=== PATIENT | female | born 1950 | race Caucasian/White ===

== ENCOUNTER 2017-08-22 09:28 | Observation (INO) ==
[2017-08-22] MEDS ORDERED: Aspirin 81 MG TAB.CHEW PO ONE (09:34)
--- NOTE | 2017-08-22 09:47 | Emergency Department Note ---
Disposition Clinical Impression: Atypical chest pain Disposition: Admitted As Inpatient Condition: Fair Time of Disposition: 12:26 Chest Pain HPI - General Chief Complaint: ED Chest Pain Stated Complaint: chest pain Time Seen by Provider: 08/22/17 09:31 Source: patient, EMS Limitations: no limitations Vital Signs Reviewed: Yes Nursing Notes Reviewed: Yes - History of Present Illness HPI Narrative: 66-year-old female presents to the ED complaining of left-sided chest pain she states that it started out approximately 8:00 this morning when she woke up lasted for about 20 minutes thousand she called the squad and it ended right before the squad arrived. She presented here with EMS. She said she had no nausea or vomiting the chest pain is only located in the chest was nonradiating to the arms of the jaw. Patient states she has never felt this pain before. She says that she was diagnosed with heart disease via by cardiology but has never had any stents or bypass surgery done. Patient is on a long car/plane ride she has not had any unilateral leg swelling or leg pain, never had any blood clots she is not on any blood thinners, she does not any hemoptysis she is not short of breath at this time. Patient otherwise has no complaints including headache, blurry vision, pain with urination, change in bowel movements, abdominal pain, pain attending and on the arms or legs or any current numbness she says no fevers, nausea/vomiting. Severity scale (1-10): 0 - Related Data Home Medications Medication Instructions Recorded Confirmed Acetaminophen [Tylenol] 325 mg PO Q6HR PRN 07/21/15 08/22/17 Aspirin Enteric Coated [Aspirin] 81 mg PO DAILY 07/21/15 08/22/17 Omeprazole [Prilosec] 40 mg PO BID 07/21/15 08/22/17 TraZODone 50 mg PO HS 07/21/15 08/22/17 Lisinopril [Zestril] 20 mg PO BID 08/22/17 08/22/17 Simvastatin [Zocor] 40 mg PO Q48H 08/22/17 08/22/17 amLODIPine [Norvasc] 5 mg PO DAILY 08/22/17 08/22/17 Allergies Allergy/AdvReac Type Severity Reaction Status Date / Time No Known Allergies Allergy Verified 08/22/17 10:44 Review of Systems: 10 point review of systems done and negative unless otherwise stated in history of present illness. All systems ED: reviewed and negative except as stated. Review of Systems: As Per HPI Chest Pain PMH - Past Medical History Medical history: Reports: hypertension, other CERTIFIED NURSE AIDE history: Reports: no CERTIFIED NURSE AIDE history - Social History Smoking Status: Never smoker Alcohol use: Reports: none Physical Exam - General Limitations: no limitations General appearance: alert, in no apparent distress - Head Head exam: atraumatic, normocephalic, normal inspection - Eye Eye exam: Present: normal appearance, PERRL, EOMI - ENT ENT exam: normal exam, normal oropharynx, mucous membranes moist - Neck Neck exam: Present: normal inspection, full ROM, trachea midline - Chest Chest inspection: Present: normal inspection, symmetric chest wall rise - Respiratory Respiratory exam: Present: normal lung sounds bilaterally - Cardiovascular Cardiovascular exam: Present: regular rate, normal rhythm, normal heart sounds - Abdominal Exam Abdominal exam: Present: soft, Non-Tender. Absent: tenderness, distention, guarding, rebound, rigidity - Extremities Exam Extremities exam: Present: normal inspection, full ROM. Absent: tenderness, pedal edema - Expanded Lower Extremity Exam Hip/Pelvis exam: Present: normal inspection, full ROM Upper leg exam: Present: normal inspection, full ROM Knee exam: Present: normal inspection, full ROM Lower leg exam: Present: normal inspection, full ROM Ankle exam: Present: normal inspection, full ROM Foot/toe exam: Present: normal inspection, full ROM Neurovascular/Tendon exam: Present: normal capillary refill. Absent: pulse deficit, motor deficit, sensory deficit, tendon deficit - Back Exam Back exam: Present: normal inspection, full ROM. Absent: tenderness, CVA tenderness (R), CVA tenderness (L) - Neurological Exam Neurological exam: Present: alert, oriented X3 - Skin Skin exam: Present: warm, dry, intact, normal color Course Course Narrative: 66-year-old female presents to the ED complaining of chest pain. Chest pain is since subsided. She took 81 mg of aspirin this morning which is her normal dose. Patient has a history of hypertension and diagnosed cardiac disease without any stents or bypass surgery. We will do normal chest pain workup including CBC, BMP, troponin, chest x-ray, EKG we will give her the rest her dose of aspirin to make it 325 mg of aspirin. We will not give her nitroglycerin at this time she is currently having chest pain. Patient otherwise okay with this plan. Most likely disposition will be admission for chest pain rule out. Vital Signs Temperature 97.8 F 08/22/17 09:29 Pulse Rate 67 08/22/17 09:29 Respiratory Rate 18 08/22/17 09:29 Blood Pressure 193/104 08/22/17 09:29 O2 Sat by Pulse Oximetry 96 08/22/17 09:29 Temperature 97.8 F 08/22/17 09:29 Pulse Rate 56 08/22/17 12:36 Respiratory Rate 16 08/22/17 12:36 Blood Pressure 148/66 08/22/17 12:36 O2 Sat by Pulse Oximetry 96 08/22/17 12:36 Oxygen Delivery Oxygen Delivery Room Air Chest Pain - MDM Narrative Medical decision making narrative: 66-year-old female presented to the ED with chest pain she says it started all of a sudden this morningwhen she called squad come pick her up. She states that after they arrived the chest pain did go away. She is worried because she does have a history of coronary artery disease approximately 2 years ago she did have a heart catheter which showed mild coronary artery disease. There were she has never had stents placed or had any bypass surgery. She regularly sees the electronics test engineer that she set to see them next week. Patient states the chest pain is gone away now. She did take 81 mg of aspirin prior to arrival. So we gave her 243 to have her equal a total dose of aspirin needed. She did have a negative troponin and all other labs were negative. She is not pain so I did not give her nitroglycerin. Due to patient's history of coronary artery disease as well as the chest pain. With like that admission for further evaluation is needed at this time. Spoke with the patient she is okay with this plan. Spoke with the hospitalist Dr. Mckenna who agreed to admit the patient. Patient is now admitted to their service in stable condition. Chest X-Ray 08/22/17 09:34 IMPRESSION: No acute cardiopulmonary process. D/ / Joan Farmer MD / Joan Farmer MD Interpreting Provider: Joan Farmer MD - Medical Records Medical records reviewed: Yes I reviewed the patient's medical records. - Lab Data Lab results reviewed: Yes I reviewed the patient's lab results. Result diagrams: 08/22/17 09:52 08/22/17 09:52 Lab Results 08/22/17 08/22/17 08/22/17 Range/Units 09:52 09:52 09:52 WBC 5.1 (4.3-11.1) K/mcL RBC 4.03 (3.82-4.97) M/mcL Hgb 12.7 (11.5-15.4) g/dL Hct 37.7 (35.3-44.9) % MCV 93.5 (83.0-100.0) fL MCH 31.5 (28.0-33.3) pg MCHC 33.7 (31.6-35.5) g/dL RDW 12.8 (11.5-14.5) % Plt Count 183 (140-400) K/mcL MPV 10.9 (9.4-12.4) fL Immature Gran % 0.2 (0-4) % Seg Neutrophils % 75.4 % Lymphocytes % 16.0 % Monocytes % 6.8 % Eosinophils % 1.2 % Basophils % 0.4 % Neutrophils # 3.9 (1.6-8.9) K/mcL Lymphocytes # 0.8 (0.6-4.6) K/mcL Monocytes # 0.4 (0.0-1.3) K/mcL Eosinophils # 0.1 (0.0-0.6) K/mcL Basophils # 0.0 (0.0-0.2) K/mcL Immature Plt Fraction 6.0 (1.1-6.1) % PT 10.8 (9.4-12.1) Seconds INR 1.0 APTT 33.8 (26.0-36.0) Seconds Sodium 138 (136-145) mEq/L Potassium 4.6 H (3.5-4.5) mEq/L Chloride 110 H (98-109) mEq/L Carbon Dioxide 19 (19-29) mEq/L BUN 20 (7-20) mg/dL Creatinine 0.98 (0.57-1.11) mg/dL Est GFR ( Amer) > 60 (> 60) Est GFR (Non-Af Amer) 56 L (> 60) BUN/Creatinine Ratio 20 (6-26) Glucose 123 H (70-99) mg/dL Calculated Osmolality 290 (280-300) Calcium 9.6 (8.6-10.8) mg/dL Troponin I (0-0.03) ng/mL 08/22/17 Range/Units 09:52 WBC (4.3-11.1) K/mcL RBC (3.82-4.97) M/mcL Hgb (11.5-15.4) g/dL Hct (35.3-44.9) % MCV (83.0-100.0) fL MCH (28.0-33.3) pg MCHC (31.6-35.5) g/dL RDW (11.5-14.5) % Plt Count (140-400) K/mcL MPV (9.4-12.4) fL Immature Gran % (0-4) % Seg Neutrophils % % Lymphocytes % % Monocytes % % Eosinophils % % Basophils % % Neutrophils # (1.6-8.9) K/mcL Lymphocytes # (0.6-4.6) K/mcL Monocytes # (0.0-1.3) K/mcL Eosinophils # (0.0-0.6) K/mcL Basophils # (0.0-0.2) K/mcL Immature Plt Fraction (1.1-6.1) % PT (9.4-12.1) Seconds INR APTT (26.0-36.0) Seconds Sodium (136-145) mEq/L Potassium (3.5-4.5) mEq/L Chloride (98-109) mEq/L Carbon Dioxide (19-29) mEq/L BUN (7-20) mg/dL Creatinine (0.57-1.11) mg/dL Est GFR ( Amer) (> 60) Est GFR (Non-Af Amer) (> 60) BUN/Creatinine Ratio (6-26) Glucose (70-99) mg/dL Calculated Osmolality (280-300) Calcium (8.6-10.8) mg/dL Troponin I 0.01 (0-0.03) ng/mL - Radiology Data Radiology results reviewed: Yes I reviewed the patient's radiology results. - EKG Data EKG attestation: Yes I reviewed and interpreted this EKG. EKG results narrative: EKG done at 0939 reviewed by myself and attending shows sinus bradycardia at a rate of 56, NE interval 151, QRS 85, QTc 385 with a normal axis. No acute ST changes, no acute T-wave abnormalities, no signs of any heart strain or hypertrophy, heart block, WPW/Brugada syndrome. This is unchanged when compared with an old EKG done 01/29/09. Heart Score - Score History: Slightly Suspicious EKG: Non Specific repolarisation Disturbance Age: Greater than 65 Risk Factors: 1-2 risk factors Troponin: Less than normal limit HEART Score Total: 4 Attestation Statement - Attestation Attestation: I examined this patient and my medical decision-making was reviewed with the Resident Physician. I agree with the documented findings, disposition and treatment plan as described except to the extent set forth below. Patient presents to the ED with resolved chest pain. Patient states express chest pain home. The last about 30 minutes and resolved prior to her arrival here. She states she had a heart catheterization done a couple of years ago which showed coronary disease. No interventions were performed at that time. Patient is in no distress on examination. Lungs clear heart regular. Plan. Cardiac workup is unremarkable. Troponin is negative. No EKG changes. She is admitted secondary to risk factors.
[2017-08-22 10:00] LABS: Basophils % 0.4 %; Eosinophils # 0.1 K/mcL (0.0-0.6); Eosinophils % 1.2 %; Hematocrit 37.7 % (35.3-44.9); Hemoglobin 12.7 g/dL (11.5-15.4); Immature Granulocytes % 0.2 % (0-4); Lymphocytes # 0.8 K/mcL (0.6-4.6); Mean Corpuscular HGB Conc 33.7 g/dL (31.6-35.5); Mean Corpuscular Hemoglobin 31.5 pg (28.0-33.3); Mean Corpuscular Volume 93.5 fL (83.0-100.0); Mean Platelet Volume 10.9 fL (9.4-12.4); Monocytes # 0.4 K/mcL (0.0-1.3); Monocytes % 6.8 %; Neutrophils # 3.9 K/mcL (1.6-8.9); Platelet Count 183 K/mcL (140-400); Red Blood Count 4.03 M/mcL (3.82-4.97); Red Cell Distribution Width 12.8 % (11.5-14.5); Segmented Neutrophils % 75.4 %
[2017-08-22 10:07] LABS: Prothrombin Time 10.8 Seconds (9.4-12.1)
[2017-08-22 10:09] LABS: Activated Partial Thrombo Time 33.8 Seconds (26.0-36.0)
[2017-08-22 10:16] LABS: BUN/Creatinine Ratio 20 (6-26); Blood Urea Nitrogen 20 mg/dL (7-20); Calcium 9.6 mg/dL (8.6-10.8); Carbon Dioxide 19 mEq/L (19-29); Chloride 110 mEq/L (98-109); Glucose 123 mg/dL (70-99); Osmolality,Calculated 290 (280-300); Potassium 4.6 mEq/L (3.5-4.5); Sodium 138 mEq/L (136-145); eGFR For African Americans > 60 (> 60); eGFR For Non-African Americans 56 (> 60)
--- NOTE | 2017-08-22 10:53 | Electrocardiograph Report ---
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
--- NOTE | 2017-08-22 13:17 | Internal Med History&Physical ---
Date of Encounter: 08/22/17 Time of Encounter: 13:17 Assessment and Plan (1) Atypical chest pain Current visit: Yes Status: Acute 66/female Likely atypical chest pain. Admitted for chest pain to rule out ACS protocol. At this point she is not on beta oleg because her heart rate was less than 55 bpm. Plan: -Admitted as observation. -Aspirin/Lipitor/lisinopril/amlodipine. -Echocardiogram. -Cycle troponin. -Labs tomorrow morning. -If 3 troponins negative/echocardiogram normal: Please consider stress test. Of note: I examined this patient in the emergency room #33. I explained at length the plan with the patient. She verbalized understanding. (2) Iron deficiency anemia Current visit: No Status: Chronic Patient previously had a chronic iron deficiency anemia. Patient's hemoglobin is now stable. Patient might be hemoconcentrated. Qualifiers: Iron deficiency anemia type: unspecified iron deficiency Qualified Code(s) : D50.9 - Iron deficiency anemia, unspecified (3) Chronic kidney disease Current visit: No Status: Acute Patient's creatinine is within normal limits. Qualifiers: Chronic kidney disease stage: unspecified stage Qualified Code(s): N18.9 - Chronic kidney disease, unspecified (4) DVT prophylaxis Current visit: Yes Status: Acute SCD Medical decision making: This patient has a moderate to severe risk of worsening in spite of being on appropriate medication due to the underlying complex medical conditions. Internal Medicine - H&P: HPI Chief complaint: chest pain Admitted From: Emergency Dept Plans for Post Hospital Care: Home History of present illness: PCP: Dr Salas Brief PMH: Hypertension, hyperlipidemia, mild coronary artery disease, previous cardiac catheterization 2 years back HPI: Patient started complaining of chest pain this morning. The chest pain was left precordial region, sharp in nature, radiating to the left arm along with left shoulder, lasted for more than one hour and that is the reason she called squad for further evaluation. Patient tells me that she was praying for 1 hour to get this pain go away that her pain was consistent and she felt that she is going to have a heart attack if she does not take care of of this on a priority basis. Patient denies shortness of breath, nausea, vomiting, abdominal pain, dizziness or diarrhea. Work up in ER: patient was evaluated in the emergency room. Basic labs were drawn. EKG was done. Her heart score was 3.: Reason for hospitalization:Chest pain to rule out ACS. Family history: Noncontributory Past Med Surg Social Fam HX - Past Medical History Medical history: hypertension, other - Social History Smoking Status: Never smoker Smokeless Tobacco Status: No Alcohol use: none Internal Medicine - H&P: Meds Acetaminophen [Tylenol] 325 mg PO Q6HR PRN 07/21/15 [History] Aspirin Enteric Coated [Aspirin] 81 mg PO DAILY 07/21/15 [History] Omeprazole [Prilosec] 40 mg PO BID 07/21/15 [History] TraZODone 50 mg PO HS 07/21/15 [History] Lisinopril [Zestril] 20 mg PO BID 08/22/17 [History] Simvastatin [Zocor] 40 mg PO Q48H 08/22/17 [History] amLODIPine [Norvasc] 5 mg PO DAILY 08/22/17 [History] 3 Allergy/AdvReac Type Severity Reaction Status Date / Time No Known Allergies Allergy Verified 08/22/17 10:44 All Systems PM: A 10-system review of systems was performed and is negative for pertinent findings except as documented above in the HPI. - Constitutional Constitutional: no chills, no fever(s), no night sweats - EENT Eyes: no change in vision, no discharge, no pain, no photophobia Ears: no ear discharge, no ear pain, no tinnitus Nose, mouth and throat: no dysphagia, no nasal discharge, no neck pain, no sore throat - Cardiovascular Cardiovascular ROS IM: as per HPI, chest pain, diaphoresis, lightheadedness, palpitations, no dyspnea, no syncope - Respiratory Respiratory: no cough, no dyspnea, no wheezing, no excessive phlegm production - Gastrointestinal Gastrointestinal: no abdominal pain, no diarrhea, no hematemesis, no hematochezia, no melena, no nausea, no vomiting - Genitourinary Genitourinary: no change in urinary stream, no dysuria, no flank pain, no hematuria - Musculoskeletal Musculoskeletal ROS IM: no numbness, no tingling - Integumentary Integumentary IM: no rash, no unusual bruising - Neurological Neurological ROS: no confusion, no convulsions, no focal weakness, no numbness, no tingling, no tremor(s) - Hematologic/Lymphatic Hematologic/Lymphatic: no easy bruising - Constitutional Vitals: Temp Pulse Resp BP Pulse Ox 97.8 F 56 16 148/66 96 08/22/17 09:29 08/22/17 12:36 08/22/17 12:36 08/22/17 12:36 08/22/17 12:36 General appearance: Present: A&O X 3, pleasant, no acute distress, answers questions appropriately - Head Head exam: Present: atraumatic, normocephalic - Eye Eye exam: Present: PERRL, conjuntiva pink, sclera anicteric Pupils: Present: PERRL - Neck Neck exam general surgery: Present: supple, trachea midline. Absent: lymphadenopathy - Respiratory Respiratory exam: Present: CTAB. Absent: accessory muscle use, rales, rhonchi, wheezes - Cardiovascular Cardiovascular exam: Present: RRR, +S1, +S2. Absent: diastolic murmur, gallop, rubs, systolic murmur - GI/Abdominal GI/Abdominal exam: Present: normal bowel sounds, soft, no peritoneal signs. Absent: distended, tenderness - Extremities Exam Extremities exam: Present: warm, radial pulses palpable and symmetrical. Absent : calf tenderness, cyanotic, pedal edema - Neurological Exam Neurological exam: Present: CN II-XII intact, oriented X3, no focal deficits. Absent: pronater drift, facial droop, speech deficit - Skin Skin exam: Present: dry, intact Internal Med - H&P Results - Labs CBC & Chem 7: 08/22/17 09:52 08/22/17 09:52
[2017-08-22] MEDS ORDERED: Naloxone 0.4 MG/ML INJ IVP PRN (13:39)
[2017-08-22] MEDS ORDERED: Nitroglycerin 0.4 MG TAB.SUBL SL PRN (13:47)
[2017-08-22] MEDS: Acetaminophen 325 MG TABLET PO PRN (15:17)
[2017-08-22] MEDS: traZODone 50 MG TABLET PO SCH (21:01)
[2017-08-22] MEDS: Lisinopril 20 MG TABLET PO SCH (21:01)
[2017-08-23] MEDS: Acetaminophen 325 MG TABLET PO PRN ×2 (00:36→14:50)
[2017-08-23 01:38] LABS: Basophils % 0.4 %; Eosinophils # 0.1 K/mcL (0.0-0.6); Eosinophils % 1.5 %; Hematocrit 33.9 % (35.3-44.9); Hemoglobin 11.4 g/dL (11.5-15.4); Immature Granulocytes % 0.2 % (0-4); Lymphocytes % 21.4 %; Mean Corpuscular HGB Conc 33.6 g/dL (31.6-35.5); Mean Corpuscular Hemoglobin 31.5 pg (28.0-33.3); Mean Corpuscular Volume 93.6 fL (83.0-100.0); Mean Platelet Volume 10.7 fL (9.4-12.4); Monocytes # 0.3 K/mcL (0.0-1.3); Monocytes % 7.1 %; Neutrophils # 3.1 K/mcL (1.6-8.9); Platelet Count 154 K/mcL (140-400); Red Blood Count 3.62 M/mcL (3.82-4.97); Red Cell Distribution Width 12.8 % (11.5-14.5); Segmented Neutrophils % 69.4 %
[2017-08-23 01:44] LABS: INR 1.1; Prothrombin Time 11.8 Seconds (9.4-12.1)
[2017-08-23 01:47] LABS: Activated Partial Thrombo Time 31.9 Seconds (26.0-36.0)
[2017-08-23 01:53] LABS: Alanine Aminotransferase 15 Units/L (0-55); Albumin 3.1 g/dL (3.5-5.0); Albumin/Globulin Ratio 1.1 (1.1-2.2); Alkaline Phosphatase 83 Units/L (38-126); Aspartate Amino Transferase 22 Units/L (5-34); BUN/Creatinine Ratio 25 (6-26); Bilirubin,Total 0.5 mg/dL (0.2-1.2); Blood Urea Nitrogen 25 mg/dL (7-20); Calcium 9.1 mg/dL (8.6-10.8); Carbon Dioxide 24 mEq/L (19-29); Chloride 109 mEq/L (98-109); Chol/HDL Ratio 3.3 (0-4.9); Cholesterol 150 mg/dL (< 200); Globulin 2.7 g/dL (2.4-3.5); Glucose 109 mg/dL (70-99); HDL Cholesterol 46 mg/dL (40-59); LDL Cholesterol,Calculated 84 mg/dL (0-99); Magnesium 2.1 mg/dL (1.6-2.6); Osmolality,Calculated 295 (280-300); Phosphorous 3.9 mg/dL (2.3-4.7); Sodium 140 mEq/L (136-145); Total Protein 5.8 g/dL (6.0-8.3); Triglycerides 102 mg/dL (< 150); eGFR For African Americans > 60 (> 60); eGFR For Non-African Americans 55 (> 60)
[2017-08-23] MEDS: Lisinopril 20 MG TABLET PO SCH ×2 (09:33→20:51)
[2017-08-23] MEDS: Aspirin Enteric Coated 81 MG Tablet PO SCH (09:33)
[2017-08-23] MEDS: amLODIPine 5 MG TABLET PO SCH (09:33)
[2017-08-23] MEDS: Metoprolol XL (24 HR) Succ 50 MG TAB.ER.24H PO SCH (14:47)
[2017-08-23] MEDS: traZODone 50 MG TABLET PO SCH (20:51)
[2017-08-24] MEDS ORDERED: Regadenoson 0.4 MG/5 ML SYRINGE IVP ONE (06:26)
[2017-08-24] MEDS: Aspirin Enteric Coated 81 MG Tablet PO SCH (10:20)
[2017-08-24] MEDS: Metoprolol XL (24 HR) Succ 50 MG TAB.ER.24H PO SCH (10:21)
[2017-08-24] MEDS: amLODIPine 5 MG TABLET PO SCH (10:21)
[2017-08-24] MEDS: Acetaminophen 325 MG TABLET PO PRN (10:21)
[2017-08-24] MEDS: Lisinopril 20 MG TABLET PO SCH (10:21)
[2017-08-24 11:00] VITALS: BP 121/68
--- NOTE | 2017-08-24 13:20 | Internal Med Progress Note ---
Date of Encounter: 08/23/17 (This is a late entry, pt was seen yesterday, documented today. Overlooked incomplete note. ) Time of Encounter: 09:20 - Assessment and plan (1) Atypical chest pain Current Visit: Yes Status: Acute Assessment and plan: Patient reported chest pain the morning of admission. She has been recently treated for bronchitis at urgent care with a new medication. She reports the chest pain was left chest pain, sharp, radiated to the left arm and shoulder, lasted approximately 90 minutes. She called EMS to bring her to the hospital in the pain was resolved prior to reaching the hospital after being treated in EMS nitroglycerin and aspirin. She denied shortness of breath, nausea, dizziness or near syncope, no diaphoresis. Patient was to have stress test morning however it was not done due to patient eating. EKG was normal sinus without any ST elevation or changes. Troponins were negative 3. The pain is not reproducible with palpation, deep inspiration, or movement. Echocardiogram showed LVEF of 55-60% with no significant valvular dysfunction and normal LV diastolic function. Chest x-ray is negative Chest X-Ray 08/22/17 09:34 IMPRESSION: No acute cardiopulmonary process. D/ / Joan Farmer MD / Joan Farmer MD Interpreting Provider: Joan Farmer MD Echocardiogram 08/22/17 13:44 Impressions: No evidence of pulmonary hypertension. Normal left ventricular diastolic function. LVEF 55-60%. No significant valvular dysfunction. Findings: Study Quality * Technically adequate exam. Right Ventricle * Normal right ventricular structure and function. Left Atrium * Normal left atrial size. Right Atrium * Normal right atrial size. Interatrial Septum * No evidence of PFO by color Doppler. Aorta * Normally sized aortic root. ECG Findings * Normal sinus rhythm. Pericardium * There is a trivial pericardial effusion present. Tricuspid Valve * Trace tricuspid regurgitation. * No tricuspid stenosis. * Estimated RVSP is 29 mmHg. * No evidence of pulmonary hypertension. Left Ventricle * Normal left ventricular diastolic function. * LVEF 55-60%. Pulmonic Valve * No pulmonic stenosis. * No pulmonic regurgitation. Mitral Valve * Normal mitral valve structure. * No mitral stenosis. * Mild mitral regurgitation. Aortic Valve * Normal aortic valve structure. * No aortic stenosis. * Mild aortic regurgitation. Continue telemetry Stress test pending Continue to monitor labs and vital signs Aspirin or nitroglycerin for chest pain (2) Iron deficiency anemia Current Visit: No Status: Chronic Assessment and plan: Patient with prior history of iron deficiency anemia. She is currently not taking any supplementation and her hemoglobin is only mildly decreased at 11.4. Patient follows with primary care for evaluation. Qualifiers: Iron deficiency anemia type: unspecified iron deficiency Qualified Code(s) : D50.9 - Iron deficiency anemia, unspecified (3) Chronic kidney disease Current Visit: Yes Status: Chronic Assessment and plan: Renal function is within normal limits. Serum creatinine is 1.0 GFR is 55. This is improved over her normal baseline. Continue to avoid nephrotoxins and NSAIDs. Follow-up with primary care. Qualifiers: Chronic kidney disease stage: unspecified stage Qualified Code(s): N18.9 - Chronic kidney disease, unspecified (4) DVT prophylaxis Current Visit: Yes Status: Acute Assessment and plan: Patient has been ambulatory. Encourage ambulation. - Time Spent With Patient less than 15 minutes - Subjective Interval history: Patient was seen and assessed at 9:20 AM yesterday. This is a late entry as previously documented. She reports that she has been recently treated for bronchitis and was seen in urgent care sometime in July. She denies being a smoker. She denies any chest pain at the time of examination and she has had no chest pain since prior to arriving at the emergency department. - Constitutional Vitals: Temp Pulse Resp BP Pulse Ox 97.6 F 65 16 121/68 96 08/24/17 10:59 08/24/17 10:59 08/24/17 10:59 08/24/17 10:59 08/24/17 10:59 General appearance: Present: cooperative, A&O X 3, pleasant, no acute distress, answers questions appropriately - Head Head exam: Present: atraumatic, normal inspection, normocephalic - Eye Eye exam: Present: normal appearance, conjuntiva pink, sclera anicteric - Neck Neck exam general surgery: Present: supple, trachea midline. Absent: lymphadenopathy, tenderness - Respiratory Respiratory exam: Present: CTAB, wheezes. Absent: accessory muscle use, decreased breath sounds, rales, rhonchi Additional comments: Faint wheezing heard in bilateral bases. - Cardiovascular Cardiovascular exam: Present: RRR, +S1, +S2. Absent: diastolic murmur, gallop, irregular rhythm, rubs, systolic murmur - GI/Abdominal GI/Abdominal exam: Present: normal bowel sounds, soft. Absent: diminished bowel sounds, distended, hepatomegaly, tenderness - Extremities Exam Extremities exam: Present: normal inspection, warm, radial pulses palpable and symmetrical. Absent: calf tenderness, cyanotic, pedal edema, tenderness - Neurological Exam Neurological exam: Present: CN II-XII intact, oriented X3, no focal deficits. Absent: pronater drift, facial droop, speech deficit - Skin Skin exam: Present: dry, intact Internal Medicine: Result - Labs CBC & Chem 7: 08/23/17 01:26 08/23/17 01:26 - ABG Interpretation ABG results: PT/INR, D-dimer PT 11.8 Seconds (9.4-12.1) 08/23/17 01:26 Consult Discharge Plan - Plan Referrals: James Durbin DO [Primary Care Provider] -
--- NOTE | 2017-08-24 13:30 | Discharge Summary ---
Date of Encounter: 08/24/17 Time of Encounter: 13:15 - Discharge Diagnosis (1) Atypical chest pain Priority: Primary Status: Acute Comments: Patient reported chest pain the morning of admission. She has been recently treated for bronchitis at urgent care with a new medication. She reports the chest pain was left chest pain, sharp, radiated to the left arm and shoulder, lasted approximately 90 minutes. She called EMS to bring her to the hospital in the pain was resolved prior to reaching the hospital after being treated in EMS nitroglycerin and aspirin. She denied shortness of breath, nausea, dizziness or near syncope, no diaphoresis. Patient was to have stress test morning however it was not done due to patient eating. EKG was normal sinus without any ST elevation or changes. Troponins were negative 3. The pain is not reproducible with palpation, deep inspiration, or movement. Echocardiogram showed LVEF of 55-60% with no significant valvular dysfunction and normal LV diastolic function. Chest x-ray is negative. Stress test was negative for ischemia or infarct with a gated EF of greater than 70%. Unclear etiology of chest pain other than pleuritic chest pain or pain due to bronchitis, lungs are clear throughout both a&p lung lucero. Pt is a non-smoker and denies change in routine or level of activity. I have encouraged pt to return if symptoms return and to follow up with her PCP in the next 7-10 days. Continue aspirin and statin. Chest X-Ray 08/22/17 09:34 IMPRESSION: No acute cardiopulmonary process. D/ / Joan Farmer MD / Joan Farmer MD Interpreting Provider: Joan Farmer MD Echocardiogram 08/22/17 13:44 Impressions: No evidence of pulmonary hypertension. Normal left ventricular diastolic function. LVEF 55-60%. No significant valvular dysfunction. Findings: Study Quality * Technically adequate exam. Right Ventricle * Normal right ventricular structure and function. Left Atrium * Normal left atrial size. Right Atrium * Normal right atrial size. Interatrial Septum * No evidence of PFO by color Doppler. Aorta * Normally sized aortic root. ECG Findings * Normal sinus rhythm. Pericardium * There is a trivial pericardial effusion present. Tricuspid Valve * Trace tricuspid regurgitation. * No tricuspid stenosis. * Estimated RVSP is 29 mmHg. * No evidence of pulmonary hypertension. Left Ventricle * Normal left ventricular diastolic function. * LVEF 55-60%. Pulmonic Valve * No pulmonic stenosis. * No pulmonic regurgitation. Mitral Valve * Normal mitral valve structure. * No mitral stenosis. * Mild mitral regurgitation. Aortic Valve * Normal aortic valve structure. * No aortic stenosis. * Mild aortic regurgitation. (2) Iron deficiency anemia Priority: Secondary Status: Chronic Comments: Patient with prior history of iron deficiency anemia. She is currently not taking any supplementation and her hemoglobin is only mildly decreased at 11.4. Patient follows with primary care for evaluation. Qualifiers: Iron deficiency anemia type: unspecified iron deficiency Qualified Code(s) : D50.9 - Iron deficiency anemia, unspecified (3) Chronic kidney disease Priority: Secondary Status: Chronic Comments: Renal function is stable. Continue to avoid nephrotoxins and NSAIDs, follow with primary care. Qualifiers: Chronic kidney disease stage: unspecified stage Qualified Code(s): N18.9 - Chronic kidney disease, unspecified (4) DVT prophylaxis Priority: Secondary Status: Acute Comments: Patient has been ambulatory. - Discharge Medications Home Medications: Acetaminophen [Tylenol] 325 mg PO Q6HR PRN 07/21/15 [History] Aspirin Enteric Coated [Aspirin EC] 81 mg PO DAILY 07/21/15 [History] Omeprazole [PriLOSEC] 40 mg PO BID 07/21/15 [History] TraZODone 50 mg PO HS 07/21/15 [History] Lisinopril [Zestril] 20 mg PO BID 08/22/17 [History] Simvastatin [Zocor] 40 mg PO Q48H 08/22/17 [History] amLODIPine [Norvasc] 5 mg PO DAILY 08/22/17 [History] Allergies/Adverse Reactions: 3 Allergy/AdvReac Type Severity Reaction Status Date / Time No Known Allergies Allergy Verified 08/22/17 10:44 Procedures/tests Complete & Pending: Procedures Performed prior 72 hours Category Date Time Status NM pancho perf SPECT multi [NM] Routine Exams 08/23/17 08:12 Taken EV echocardiogram Routine Y 08/22/17 13:44 Completed SP pharm nuclear stress Routine Y 08/24/17 07:15 Completed Date of admission: 08/22/17 12:34 Primary care physician: Kwaku Carpio Discharging clinician: Floridalma Potts Anticipated date of discharge: 08/24/17 - Patient Status Disposition: Home, Self-Care Condition: Good Functional capacity at discharge: independent ambulation Overall status at discharge: patient is back to baseline - Discharge Instructions Follow Up With: James Durbin DO [Primary Care Provider] - Additional Instructions: Please follow-up with her primary care provider within the next 7-10 days for recheck. Resume your normal home medications. Resume your normal activities and diet as tolerated. Return to the emergency department as needed for any other problems or concerns , or if your symptoms return or worsen. - Diet and Activity Activity: increase activity as tolerated Diet: diabetic diet Interval History: Please see assessment and plan for hospital course. Hospital course: Ms. Blanco is a 66 year old female - Time Spent with Patient Total time spent providing and/or coordinating discharge services: - Constitutional Vitals: Temp Pulse Resp BP Pulse Ox 97.6 F 65 16 121/68 96 08/24/17 10:59 08/24/17 10:59 08/24/17 10:59 08/24/17 10:59 08/24/17 10:59 General appearance: Present: cooperative, A&O X 3, pleasant, no acute distress, answers questions appropriately - Head Head exam: Present: atraumatic, normal inspection, normocephalic - Eye Eye exam: Present: conjuntiva pink, sclera anicteric - Neck Neck exam general surgery: Present: supple, trachea midline. Absent: lymphadenopathy - Respiratory Respiratory exam: Present: CTAB. Absent: accessory muscle use, rales, rhonchi, wheezes - Cardiovascular Cardiovascular exam: Present: RRR, +S1, +S2. Absent: diastolic murmur, gallop, rubs, systolic murmur - GI/Abdominal GI/Abdominal exam: Present: normal bowel sounds, soft, no peritoneal signs. Absent: distended, tenderness - Extremities Exam Extremities exam: Present: warm, radial pulses palpable and symmetrical. Absent : calf tenderness, cyanotic, pedal edema - Neurological Exam Neurological exam: Present: CN II-XII intact, oriented X3, no focal deficits. Absent: pronater drift, facial droop, speech deficit - Skin Skin exam: Present: dry, intact
== END 2017-08-24 15:45 | disposition home or self-care (01) ==
LOC: 3BNU 09:28 → EMEROO 09:28 → 3BNU 13:29
PROVIDERS: ADMIT Registered Nurse; ATTEND Registered Nurse

== ENCOUNTER 2019-08-29 11:43 | Observation (INO) ==
[2019-08-29 12:15] LABS: Basophils % 0.6 %; Eosinophils % 0.8 %; Hematocrit 34.8 % (35.3-44.9); Hemoglobin 12.3 g/dL (11.5-15.4); Immature Granulocytes % 0.6 % (0-4); Lymphocytes # 0.7 K/mcL (0.6-4.6); Lymphocytes % 19.8 %; Mean Corpuscular HGB Conc 35.3 g/dL (31.6-35.5); Mean Corpuscular Hemoglobin 33.1 pg (28.0-33.3); Mean Corpuscular Volume 93.5 fL (83.0-100.0); Mean Platelet Volume 10.3 fL (9.4-12.4); Monocytes # 0.2 K/mcL (0.0-1.3); Monocytes % 6.6 %; Neutrophils # 2.6 K/mcL (1.6-8.9); Platelet Count 164 K/mcL (140-400); Red Blood Count 3.72 M/mcL (3.82-4.97); Red Cell Distribution Width 12.5 % (11.5-14.5); Segmented Neutrophils % 71.6 %; White Blood Count 3.6 K/mcL (4.3-11.1)
[2019-08-29 12:20] LABS: Prothrombin Time 11.6 Seconds (9.4-12.1)
[2019-08-29 12:23] LABS: Activated Partial Thrombo Time 33.1 Seconds (26.0-36.0)
[2019-08-29 12:36] LABS: BUN/Creatinine Ratio 21 (6-26); Blood Urea Nitrogen 30 mg/dL (8-23); Calcium 9.5 mg/dL (8.6-10.3); Carbon Dioxide 20 mEq/L (23-29); Chloride 104 mEq/L (98-107); Glucose 152 mg/dL (70-105); Osmolality,Calculated 289 (280-300); Potassium 3.6 mEq/L (3.5-5.1); Sodium 135 mEq/L (136-145); eGFR For African Americans 44 (> 60); eGFR For Non-African Americans 36 (> 60)
[2019-08-29 12:37] LABS: Troponin I < 0.03 ng/mL (< 0.04)
[2019-08-29] MEDS ORDERED: Mag Hydrox/Al Hydrox/Simeth 30 ML UDC PO PRN (14:59)
[2019-08-29] MEDS ORDERED: *HR* Promethazine 25 MG/ML VIAL IVP PRN (14:59)
[2019-08-29] MEDS ORDERED: Ondansetron 4 MG/2 ML VIAL IVP PRN (14:59)
[2019-08-29] MEDS ORDERED: Naloxone 0.4 MG/ML INJ IVP PRN (14:59)
[2019-08-29] MEDS ORDERED: Acetaminophen 325 MG TABLET PO PRN (14:59)
[2019-08-29] MEDS: *HR* Heparin 5,000 UNIT/ML VIAL SQ SCH (17:19)
[2019-08-29] MEDS: Fluticasone Propionate Nasal 50 MCG/SPRAY BOTTLE NS SCH (17:19)
[2019-08-29] MEDS: traZODone 50 MG TABLET PO SCH (21:23)
[2019-08-30 01:29] LABS: Hematocrit 31.8 % (35.3-44.9); Hemoglobin 10.8 g/dL (11.5-15.4); Mean Corpuscular Hemoglobin 32.6 pg (28.0-33.3); Mean Corpuscular Volume 96.1 fL (83.0-100.0); Mean Platelet Volume 10.6 fL (9.4-12.4); Platelet Count 144 K/mcL (140-400); Red Blood Count 3.31 M/mcL (3.82-4.97); Red Cell Distribution Width 12.5 % (11.5-14.5); White Blood Count 3.6 K/mcL (4.3-11.1)
[2019-08-30 01:54] LABS: Albumin 3.5 g/dL (3.5-5.7); Albumin/Globulin Ratio 1.8 (1.1-2.2); Bilirubin,Total 0.4 mg/dL (0.3-1.0); Calcium 8.6 mg/dL (8.6-10.3); Chol/HDL Ratio 3.7 (0-4.9); Magnesium 2.1 mg/dL (1.6-2.6); Phosphorous 4.6 mg/dL (2.7-4.5); Potassium 3.5 mEq/L (3.5-5.1); Total Protein 5.5 g/dL (6.4-8.9)
[2019-08-30 04:42] LABS: Estimated Average Glucose 120 mg/dl
[2019-08-30] MEDS: *HR* Heparin 5,000 UNIT/ML VIAL SQ SCH ×2 (05:22→18:06)
[2019-08-30] MEDS ORDERED: Cyanocobalamin (B-12) 1,000 MCG TABLET PO SCH (09:00)
[2019-08-30] MEDS ORDERED: Isosorbide MONOnitrate (24 HR) 30 MG TAB.ER.24H PO SCH (09:00)
[2019-08-30] MEDS ORDERED: amLODIPine 5 MG TABLET PO SCH (09:00)
[2019-08-30] MEDS ORDERED: Metoprolol XL (24 HR) Succ 25 MG TAB.ER.24H PO SCH (09:00)
[2019-08-30] MEDS ORDERED: Lisinopril-HCTZ 20-12.5mg TABLET PO SCH (09:00)
[2019-08-30] MEDS ORDERED: Metoprolol XL (24 HR) Succ 50 MG TAB.ER.24H PO SCH (09:00)
[2019-08-30] MEDS: Fluticasone Propionate Nasal 50 MCG/SPRAY BOTTLE NS SCH (18:06)
[2019-08-30] MEDS: traZODone 50 MG TABLET PO SCH (20:15)
[2019-08-31] MEDS: *HR* Heparin 5,000 UNIT/ML VIAL SQ SCH (05:13)
[2019-08-31 07:05] VITALS: BP 133/61
[2019-08-31 07:53] LABS: Calcium 8.2 mg/dL (8.6-10.3); Potassium 3.9 mEq/L (3.5-5.1)
== END 2019-08-31 11:20 | disposition home or self-care (01) ==
LOC: 3BNU 11:43 → EMEROOARM 11:43 → 3BNU 16:33
PROVIDERS: ADMIT Internal Medicine; ATTEND Internal Medicine

== ENCOUNTER 2020-12-31 10:38 | Observation (INO) ==
[2020-12-31 11:15] LABS: Basophils % 0.3 %; Hematocrit 37.3 % (35.3-44.9); Hemoglobin 12.9 g/dL (11.5-15.4); Immature Granulocytes % 0.3 % (0-4); Lymphocytes # 0.4 K/mcL (0.6-4.6); Lymphocytes % 11.3 %; Mean Corpuscular HGB Conc 34.6 g/dL (31.6-35.5); Mean Corpuscular Hemoglobin 31.1 pg (28.0-33.3); Mean Corpuscular Volume 89.9 fL (83.0-100.0); Mean Platelet Volume 11.4 fL (9.4-12.4); Monocytes # 0.2 K/mcL (0.0-1.3); Monocytes % 4.8 %; Neutrophils # 2.8 K/mcL (1.6-8.9); Platelet Count 151 K/mcL (140-400); Red Blood Count 4.15 M/mcL (3.82-4.97); Red Cell Distribution Width 13.1 % (11.5-14.5); Segmented Neutrophils % 83.3 %; White Blood Count 3.4 K/mcL (4.3-11.1)
[2020-12-31 11:43] LABS: Alanine Aminotransferase 20 Units/L (7-52); Albumin 4.3 g/dL (3.5-5.7); Albumin/Globulin Ratio 1.6 (1.1-2.2); Alkaline Phosphatase 68 Units/L (34-104); Aspartate Amino Transferase 38 Units/L (13-39); BUN/Creatinine Ratio 20 (6-26); Bilirubin,Total 0.3 mg/dL (0.3-1.0); Blood Urea Nitrogen 35 mg/dL (8-23); Calcium 9.7 mg/dL (8.6-10.3); Carbon Dioxide 20 mEq/L (23-29); Chloride 99 mEq/L (98-107); Globulin 2.7 g/dL (2.4-3.5); Glucose 134 mg/dL (70-105); Lipase 22 Units/L (11-82); Osmolality,Calculated 286 (280-300); Potassium 3.7 mEq/L (3.5-5.1); Sodium 133 mEq/L (136-145); Troponin I < 0.03 ng/mL (< 0.04); eGFR For African Americans 35 (> 60); eGFR For Non-African Americans 29 (> 60)
[2020-12-31 13:43] LABS: Bilirubin,Urine Negative (Negative); Blood,Urine Negative (Negative); Clarity,Urine Clear (Clear); Color,Urine Yellow (Yellow); Glucose,Urine (UA) Normal (Normal); Granular Casts,Urine Many per lpf (None Seen); Hyaline Casts,Urine Many per lpf (None Seen); Ketones,Urine Trace mg/dL (Negative); Leukocyte Esterase,Urine Negative (Negative); Mucus,Urine Few per lpf (None-Few); Nitrite,Urine Negative (Negative); PH,Urine 5.5 pH Units (5.0-8.0); Protein,Urine 100 mg/dL (Neg-Trace); RBC,Urine 0-3 per hpf (0-3); Renal Epithelial Cells,Urine Few per hpf (None-Few); Squamous Epithelial Cell,Urine Few per hpf (None-Few); Transitional Epi Cells,Urine Few per hpf (None-Few); Urobilinogen,Urine Normal (Normal); WBC,Urine 0-3 per hpf (0-3)
[2020-12-31 14:04] LABS: Bacteria,Urine Few per hpf (None-Few)
[2020-12-31] MEDS ORDERED: 0.9 % Sodium Chloride 1,000 ML IVC ONE (14:27)
[2020-12-31] MEDS ORDERED: 0.9 % Sodium Chloride 1,000 ML ONE (14:30)
[2020-12-31] MEDS ORDERED: Acetaminophen 325 MG TABLET PO PRN (15:32)
[2020-12-31] MEDS ORDERED: Melatonin 3 MG TABLET PO PRN (15:32)
[2020-12-31] MEDS ORDERED: Ondansetron 4 MG/2 ML VIAL IVP PRN (15:32)
[2020-12-31] MEDS ORDERED: Naloxone 0.4 MG/ML INJ IVP PRN (15:32)
[2020-12-31] MEDS ORDERED: traZODone 50 MG TABLET PO SCH (21:00)
[2020-12-31] MEDS ORDERED: rOPINIRole 0.25 MG TABLET PO SCH (21:00)
[2021-01-01 05:00] LABS: Basophils % 0.4 %; Hematocrit 35.2 % (35.3-44.9); Lymphocytes # 0.7 K/mcL (0.6-4.6); Lymphocytes % 28.2 %; Mean Corpuscular HGB Conc 32.1 g/dL (31.6-35.5); Mean Corpuscular Hemoglobin 30.3 pg (28.0-33.3); Mean Corpuscular Volume 94.4 fL (83.0-100.0); Monocytes # 0.2 K/mcL (0.0-1.3); Monocytes % 7.5 %; Neutrophils # 1.6 K/mcL (1.6-8.9); Platelet Count 130 K/mcL (140-400); Red Blood Count 3.73 M/mcL (3.82-4.97); Red Cell Distribution Width 13.2 % (11.5-14.5); Segmented Neutrophils % 63.9 %; White Blood Count 2.5 K/mcL (4.3-11.1)
[2021-01-01 05:01] LABS: Hemoglobin 11.3 g/dL (11.5-15.4)
[2021-01-01 05:19] LABS: Calcium 8.6 mg/dL (8.6-10.3); Potassium 3.9 mEq/L (3.5-5.1)
[2021-01-01 07:42] VITALS: BP 140/64
== END 2021-01-01 10:50 | disposition home or self-care (01) ==
LOC: 3BNU 10:38 → EMEROOARM 10:38 → SUATTDRO 14:54 → 3BNU 15:50
PROVIDERS: ADMIT Internal Medicine; ATTEND Internal Medicine